=== PATIENT | male | born 2000 | race Caucasian/White ===

== ENCOUNTER 2020-07-20 22:54 | Emergency (ER) | payer OTHER ==
[~2020-07-20] VITALS: Ht 185.4 cm; Wt 102.1 kg
[~2020-07-20 22:54] MED LIST: RXCODACESY PO
[2020-07-21] MEDS ORDERED: CEPH500 PO (01:04)
[2020-07-21] MEDS ORDERED: Norco 5-325 Ta1 EACH PO (01:04)
[2020-07-21] MEDS ORDERED: IBUP600 PO (01:04)
== END 2020-07-21 01:40 | disposition home or self-care (01) ==
LOC: ER 22:54
DX: S92.335A Nondisplaced fracture of third metatarsal bone, left foot, initial encounter for closed fracture (principal); S80.211A Abrasion, right knee, initial encounter; S93.402A Sprain of unspecified ligament of left ankle, initial encounter; Z23 Encounter for immunization; Z88.0 Allergy status to penicillin; V29.9XXA Motorcycle rider (driver) (passenger) injured in unspecified traffic accident, initial encounter; Y92.410 Unspecified street and highway as the place of occurrence of the external cause
CPT/HCPCS: 29515; 73610; 73630; 90471; 90714; 99283-25; A9270; A9270-GY